=== PATIENT | male | born 2000 | race Caucasian/White ===

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

== ENCOUNTER 2020-11-30 23:41 | Emergency (ER) | payer MEDICAID | END 2020-12-01 02:02 | disposition left against medical advice (07) | LOC: ER 23:41 | DX: R68.89 Other general symptoms and signs (principal); Z53.21 Procedure and treatment not carried out due to patient leaving prior to being seen by health care provider ==

== ENCOUNTER 2020-12-01 19:38 | Emergency (ER) | payer MEDICAID ==
[~2020-12-01] VITALS: Ht 180.3 cm; Wt 91.0 kg
[2020-12-01 21:48] LABS: BASOPHILS % 0.3 % (0.0-2.0); EOSINOPHILS % 0.8 % (0.0-5.0); HEMATOCRIT. 44.9 % (42.0-52.0); HEMOGLOBIN. 15.4 g/dL (14.0-18.0); LYMPHOCYTES % 16.7 % (20.0-50.0); MEAN CORPUSCULAR HEMOGLOBIN 28.6 pg (28.0-32.0); MEAN CORPUSCULAR VOLUME 83.5 fL (80.0-94.0); MONOCYTES % 6.8 % (2.0-8.0); NEUTROPHILS % 75.4 % (40.0-76.0); PLATELET 277 x1000/uL (130-400); RED BLOOD CELL COUNT 5.38 mill/uL (4.7-6.1); RED CELL DISTRIBUTION WIDTH 12.7 % (11.6-14.6)
[2020-12-01 21:54] LABS: CHLORIDE 107 mEq/L (98-107)
[2020-12-01 21:59] LABS: ETHANOL BLOOD < 10 mg/dL
[2020-12-01 22:15] LABS: *BARBITURATES SCREEN URINE NEGATIVE (NEGATIVE); *BENZODIAZEPINES SCREEN URINE NEGATIVE (NEGATIVE); METHADONE URINE SCREEN NEGATIVE (NEGATIVE); OPIATES URINE SCREEN NEGATIVE (NEGATIVE)
[2020-12-01 22:16] LABS: *AMPHETAMINES SCREEN URINE NEGATIVE (NEGATIVE); *COCAINE SCREEN URINE NEGATIVE (NEGATIVE); CANNABINOID URINE SCREEN NEGATIVE (NEGATIVE); PHENCYCLIDINE URINE SCREEN NEGATIVE (NEGATIVE)
[2020-12-02 01:44] VITALS: BP 120/67
[2020-12-02] MEDS ORDERED: IBUPROFEN 400MG TABLET PO ONE (01:45)
== END 2020-12-02 01:30 | disposition home or self-care (01) ==
LOC: ER 20:04
DX: F43.21 Adjustment disorder with depressed mood (principal); R45.851 Suicidal ideations
CPT/HCPCS: 36415; 80048; 80076; 80305; 80320; 85025; 99283; G0480

== ENCOUNTER 2021-08-25 12:08 | Emergency (ER) | payer MEDICAID ==
[~2021-08-25] VITALS: Ht 180.3 cm; Wt 86.0 kg
[2021-08-25] MEDS ORDERED: IBUPROFEN 600MG TABLET PO ONE (13:00)
[2021-08-25] MEDS ORDERED: GUAI-741 MT (13:39)
[2021-08-25] MEDS ORDERED: IBUP-2029 MT (13:39)
[2021-08-25 13:50] VITALS: BP 118/76
== END 2021-08-25 13:50 | disposition home or self-care (01) ==
LOC: ER 12:08
DX: J06.9 Acute upper respiratory infection, unspecified (principal); Z20.822 Contact with and (suspected) exposure to COVID-19
CPT/HCPCS: 87426; 87804; 99283; C9803

== ENCOUNTER 2021-09-22 22:55 | Emergency (ER) | payer MEDICAID ==
[~2021-09-22] VITALS: Ht 165.1 cm; Wt 107.0 kg
[~2021-09-22 22:55] MED LIST: GUAI-741 MT; IBUP-2029 MT
[2021-09-22 23:13] VITALS: BP 138/95
== END 2021-09-23 00:46 | disposition left against medical advice (07) ==
LOC: ER 22:55
DX: Z53.21 Procedure and treatment not carried out due to patient leaving prior to being seen by health care provider (principal)
CPT/HCPCS: 99281

== ENCOUNTER 2021-10-26 21:24 | Emergency (ER) | payer MEDICAID ==
[~2021-10-26] VITALS: Ht 208.3 cm; Wt 83.6 kg
[2021-10-27] MEDS ORDERED: KETOROLAC 30MG/ML VIAL IM ONE (02:15)
[2021-10-27] MEDS ORDERED: IBUP-2029 MT (02:24)
[2021-10-27] MEDS ORDERED: METH-653 MT (02:24)
[2021-10-27 02:38] VITALS: BP 112/77
== END 2021-10-27 02:42 | disposition home or self-care (01) ==
LOC: ER 21:24
DX: S46.912A Strain of unspecified muscle, fascia and tendon at shoulder and upper arm level, left arm, initial encounter (principal); X58.XXXA Exposure to other specified factors, initial encounter; Y93.89 Activity, other specified; Y92.89 Other specified places as the place of occurrence of the external cause
CPT/HCPCS: 73030; 96372; 99283; J1885

== ENCOUNTER 2022-02-14 22:12 | Emergency (ER) | payer MEDICAID ==
[~2022-02-14 22:12] MED LIST changes: +METH-653 MT
== END 2022-02-14 23:58 | disposition left against medical advice (07) ==
LOC: ER 22:12
DX: Z53.21 Procedure and treatment not carried out due to patient leaving prior to being seen by health care provider (principal)